=== PATIENT | female | born 2000 | race Caucasian/White ===

== ENCOUNTER 2019-11-07 07:24 | Emergency (ER) | payer OTHER ==
[~2019-11-07] VITALS: Ht 177.8 cm; Wt 93.0 kg
[2019-11-07] MEDS ORDERED: CIPRO500 M1 PO (08:36)
[2019-11-07 08:40] VITALS: BP 122/74
== END 2019-11-07 08:40 | disposition home or self-care (01) ==
LOC: ER 07:24
DX: R11.2 Nausea with vomiting, unspecified (principal); R19.7 Diarrhea, unspecified; Z20.828 Contact with and (suspected) exposure to other viral communicable diseases